=== PATIENT | male | born 1950 | race Caucasian/White ===

== ENCOUNTER 2017-01-06 15:13 | Emergency (ER) | payer SELFPAY ==
[2017-01-06 15:32] VITALS: BP 139/74; PULSE 87; TEMP 98; BMI 25.9
--- NOTE | 2017-01-06 18:07 | PDOC ---
History of Present Illness - General History Source: Patient Exam Limitations: No Limitations - History of Present Illness Initial Comments: CHIEF COMPLAINT: 66 y/o afebrile male with PMH HTN, HLD, gastritis and enlarged liver here for alcohol detox. HISTORY OF PRESENT ILLNESS: The patient admits he drinks 1 liter of wine and other hard alcohol daily for the past 35 years. The drinking is causing problems in his relationships so he would like to go to detox. He denies any previous attempts at detox. He denies all symptoms of withdrawal and states he feels good. Vital signs on arrival are within normal limits. REVIEW OF SYSTEMS: GENERAL/CONSTITUTIONAL: No fever/chills. No weakness. No weight change. HEAD, EYES, EARS, NOSE AND THROAT: No change in vision. No ear pain or discharge. No sore throat. CARDIOVASCULAR: No chest pain or shortness of breath. RESPIRATORY: No cough, wheezing, or hemoptysis. GASTROINTESTINAL: No abd pain, nausea, vomiting, diarrhea. GENITOURINARY: No dysuria, frequency, or change in urination. MUSCULOSKELETAL: No joint or muscle swelling or pain. No neck or back pain. SKIN: No rash or easy bruising. NEUROLOGIC: No headache, vertigo, loss of consciousness, or loss of sensation. PHYSICAL EXAM: GENERAL: The patient is awake, alert, and fully oriented, in no acute distress. He is very well appearing, ambulatory, in NAD or obvious discomfort. HEAD: Normal with no signs of trauma. ENT: Pupils equal, round and reactive to light, extraocular movements intact, sclera anicteric, conjunctiva clear. Neck supple. LUNGS: Clear to auscultation bilaterally. Normal excursion. No respiratory distress or use of accessory muscles. CV: RRR, S1/S2, no MRG. Cap refill < 2 sec. ABDOMEN: Soft, non-distended, non-tender even to deep palpation, no hepatomegaly or splenomegaly, no masses. EXTREMITIES: Normal range of motion, no edema. NEUROLOGICAL: Normal speech, normal gait. CN II-XII grossly intact. PSYCH: Normal mood, normal affect. SKIN: Warm, dry, normal turgor, no rashes or lesions noted. <Rosemary Hodge - Last Filed: 01/06/17 18:03> <Malcolm Sloan - Last Filed: 01/06/17 19:55> - General Chief Complaint: Alcohol intoxication Stated Complaint: INTOX Time Seen by Provider: 01/06/17 17:46 Past History - Past Medical History HTN: Yes Hypercholesterolemia: Yes - Psycho/Social/Smoking Cessation Hx Anxiety: No Suicidal Ideation: No Smoking History: Former smoker Have you smoked in the past 12 months: No Information on smoking cessation initiated: No Hx Alcohol Use: Yes (wine ( 1 liter), whiskey (small bottles)) Drug/Substance Use Hx: No Substance Use Type: Alcohol <Rosemary Hodge - Last Filed: 01/06/17 18:03> <Malcolm Sloan - Last Filed: 01/06/17 19:55> - Past Medical History Allergies/Adverse Reactions: Allergies Allergy/AdvReac Type Severity Reaction Status Date / Time No Known Allergies Allergy Verified 01/06/17 15:32 Home Medications: Ambulatory Orders NK [No Known Home Medication] 01/06/17 *Physical Exam - Vital Signs Last Vital Signs Temp Pulse Resp BP Pulse Ox 98.0 F 87 98 H 139/74 01/06/17 15:26 01/06/17 15:26 01/06/17 15:26 01/06/17 15:26 <Rosemary Hodge - Last Filed: 01/06/17 18:03> - Vital Signs Last Vital Signs Temp Pulse Resp BP Pulse Ox 98.0 F 87 98 H 139/74 01/06/17 15:26 01/06/17 15:26 01/06/17 15:26 01/06/17 15:26 <Malcolm Sloan - Last Filed: 01/06/17 19:55> Medical Decision Making - Medical Decision Making A/P: 66 y/o well appearing male here for detox from ETOH. He is originally from [place] and has been living here for a few years with his girlfriend. He denies all symptoms and states he feels well. Spoke with [facility] and they have no male beds. They suggested he return in the morning. The patient verbalizes understanding of all instructions, has no further questions and is awaiting discharge. <Rosemary Hodge - Last Filed: 01/06/17 18:03> - Medical Decision Making 01/06/17 19:55 The patient was seen and evaluated in conjunction with ALE Hodge under my direct supervision, ancillary studies were reviewed. I agree with the plan as outlined by ALE Hodge . <Malcolm Sloan - Last Filed: 01/06/17 19:55> *DC/Admit/Observation/Transfer <Rosemary Hodge - Last Filed: 01/06/17 18:03> <Malcolm Sloan - Last Filed: 01/06/17 19:55> Diagnosis at time of Disposition: ETOH abuse, EtOH dependence - Patient Instructions Printed Discharge Instructions: DI for Alcohol Abuse Additional Instructions: Discharge Instructions: -Return tomorrow morning in hopes there will be a male bed at the detox facility.
== END 2017-01-06 18:00 | disposition home or self-care (01) ==
LOC: JER 15:13
DX: F10.20 Alcohol dependence, uncomplicated (principal); I10 Essential (primary) hypertension; E78.00 Pure hypercholesterolemia, unspecified
CPT/HCPCS: 99281-25

== ENCOUNTER 2017-01-09 08:46 | Inpatient (IN) | payer SELFPAY ==
[2017-01-09 11:34] VITALS: BMI 24.1
--- NOTE | 2017-01-09 13:06 | HP ---
CIWA Score - CIWA Score Nausea/Vomitin-No Nausea/No Vomiting Muscle Tremors: 4-Moderate,w/Arms Extend Anxiety: 3 Agitation: 4-Moderately Restless Paroxysmal Sweats: 3 Orientation: 0-Oriented Tacttile Disturbances: 0-None Auditory Disturbances: 0-None Visual Disturbances: 0-None Headache: 0-None Present CIWA-Ar Total Score: 14 Admission ROS BHS - HPI Chief Complaint: I am here for rehab. Allergies/Adverse Reactions: Allergies Allergy/AdvReac Type Severity Reaction Status Date / Time No Known Allergies Allergy Verified 01/09/17 12:43 History of Present Illness: pt is a 66yr old male with a history of alcohol dependence seeking detox for treatment. Exam Limitations: No Limitations - Ebola screening Have you traveled outside of the country in the last 21 days: No Have you had contact with anyone from an Ebola affected area: No Have you been sick,other than usual withdrawal symptoms: No Do you have a fever: No - Review of Systems Constitutional: Diaphoresis, Night Sweats EENT: reports: Tearing Respiratory: reports: No Symptoms reported Cardiac: reports: No Symptoms Reported, Syncope GI: reports: No Symptoms Reported : reports: No Symptoms Reported Musculoskeletal: reports: Joint Pain Neuro: reports: Tingling, Tremors Endocrine: reports: Flushing, Intolerance to Cold, Intolerance to Heat Hematology: reports: No Symptoms Reported Psychiatric: reports: Judgement Intact, Mood/Affect Appropiate, Orientated x3, Agitated, Anxious Other Systems: Reviewed and Negative Patient History - Patient Medical History Hx Anemia: No Hx Asthma: No Hx Chronic Obstructive Pulmonary Disease (COPD): No Hx Cancer: No Hx Cardiac Disorders: No Hx Congestive Heart Failure: No Hx Hypertension: Yes (on meds but does not names.) Hx Hypercholesterolemia: Yes Hx Pacemaker: No Hx Seizures: No Hx Dementia: No Hx Diabetes: No Hx Gastrointestinal Disorders: No Hx Liver Disease: No Hx Genitourinary Disorders: No Hx Sexually Transmitted Disorders: No Hx Renal Disease (ESRD): No Hx Thyroid Disease: No Hx Human Immunodeficiency Virus (HIV): No Hx Hepatitis C: No Hx Depression: No Hx Suicide Attempt: No (denies) Hx Bipolar Disorder: No Hx Schizophrenia: No - Patient Surgical History Past Surgical History: Yes Other Surgical History: Tonsillectomy - PPD History Previous Implant?: Yes Documented Results: Negative w/o proof PPD to be Administered?: Yes - Reproductive History Patient is a Female of Child Bearing Age (11 -55 yrs old): No - Smoking Cessation Smoking history: Former smoker Have you smoked in the past 12 months: No Aproximately how many cigarettes per day: 20 If you are a former smoker, when did you quit?: 6 months ago Hx Chewing Tobacco Use: No Initiated information on smoking cessation: Yes 'Breaking Loose' booklet given: 01/09/17 - Substance & Tx. History Hx Alcohol Use: Yes Hx Substance Use: No Substance Use Type: Alcohol - Substances Abused Alcohol Route: Oral Frequency: Daily Amount used: 1 liter wine/ 1-2 shots whiskey Age of first use: 19 Date of Last Use: 01/09/17 Family Disease History - Family Disease History Family History: Denies Admission Physical Exam [facility] - Vital Signs Vital Signs: Vital Signs - 24 hr 01/09/17 11:32 Temperature 96.8 F L Pulse Rate 60 Respiratory 20 Rate Blood Pressure 185/94 - Physical General Appearance: Yes: Appropriately Dressed, Moderate Distress, Tremorous, Irritable, Sweating, Anxious HEENTM: Yes: Hearing grossly Normal, Nasal Congestion Respiratory: Yes: Lungs Clear, Normal Breath Sounds, No Respiratory Distress Breast: Yes: Within Normal Limits Cardiology: Yes: Regular Rhythm, Regular Rate, S1, S2 Abdominal: Yes: Normal Bowel Sounds, Non Tender, Soft Genitourinary: Yes: Within Normal Limits Back: Yes: Normal Inspection Musculoskeletal: Yes: full range of Motion Extremities: Yes: Normal Capillary Refill, Normal Inspection, Tremors Integumentary: Yes: Normal Color, Diaphoresis Lymphatic: Yes: Within Normal Limits - Diagnostic (1) Alcohol dependence with uncomplicated withdrawal Current Visit: Yes Status: Chronic (2) Hypertension Current Visit: Yes Status: Chronic Qualifiers: Hypertension type: essential hypertension Qualified Code(s): I10 - Essential (primary) hypertension (3) Hyperlipidemia Current Visit: Yes Status: Chronic Qualifiers: Hyperlipidemia type: pure hypercholesterolemia Qualified Code(s): E78.00 - Pure hypercholesterolemia, unspecified; E78.0 - Pure hypercholesterolemia Cleared for Admission S - Detox or Rehab [facility] Level of Care: Medically Managed Detox Regimen/Protocol: Librium S Breath Alcohol Content Breath Alcohol Content: 0.073 Urine Drug Screen - Results Drug Screen Negative: Yes
[2017-01-09] MEDS ORDERED: chlordiazePOXIDE HCL 25 MG CAPSULE PO PRN (13:14)
[2017-01-09] MEDS ORDERED: ACETAMINOPHEN 325 MG TABLET (FP) PO PRN (13:14)
[2017-01-09] MEDS ORDERED: guaiFENesin/D-METHORPHAN HB 10 ML UNIT-DOSE CUPS PO PRN (13:14)
[2017-01-09] MEDS ORDERED: hydrOXYzine PAMOATE 50 MG CAPSULE (FP) PO PRN (13:14)
[2017-01-09] MEDS ORDERED: IBUPROFEN 400 MG TABLET (FP) PO PRN (13:14)
[2017-01-09] MEDS ORDERED: MAGNESIUM CITRATE 300 ML BOTTLE PO PRN (13:14)
[2017-01-09] MEDS ORDERED: P-EPHED 60MG/TRIPROLIDI 2.5MG TABLET PO PRN (13:14)
[2017-01-09] MEDS ORDERED: LOPERAMIDE HCL 2 MG CAPSULE PO PRN (13:14)
[2017-01-09] MEDS ORDERED: MENTHOL/PHENOL 1 EACH UD MM PRN (13:14)
[2017-01-09] MEDS ORDERED: MAGNESIUM HYDROX 2400MG/30ML ORAL SUSPENSION 30 ML CUP PO PRN (13:14)
[2017-01-09] MEDS ORDERED: MAG HYDROX/AL HYDROX/SIMETH 30 ML UNIT-DOSE CUP PO PRN (13:14)
[2017-01-09] MEDS ORDERED: chlordiazePOXIDE HCL 25 MG CAPSULE PO ONE (14:00)
[2017-01-09] MEDS: amLODIPine BESYLATE 5 MG TABLET (FP) PO SCH (14:45)
[2017-01-09] MEDS: chlordiazePOXIDE HCL 25 MG CAPSULE PO SCH ×2 (17:37→22:12)
[2017-01-09 17:41] LABS: URINE APPEARANCE CLEAR; URINE BILIRUBIN NEGATIVE (NEGATIVE); URINE BLOOD NEGATIVE (NEGATIVE); URINE COLOR LTYELLOW; URINE GLUCOSE (UA) NEGATIVE (NEGATIVE); URINE KETONE NEGATIVE (NEGATIVE); URINE LEUK ESTERASE NEGATIVE (NEGATIVE); URINE NITRITE NEGATIVE (NEGATIVE); URINE PROTEIN NEGATIVE (NEGATIVE); URINE UROBILINOGEN NEGATIVE E.U./dl (0.2-1.0)
[2017-01-09] MEDS: THIAMINE HCL 100 MG TABLET (FP) PO SCH (22:12)
[2017-01-09] MEDS: diphenhydrAMINE HCL 50 MG CAPSULE PO PRN (22:12)
[2017-01-09] MEDS: LISINOPRIL 10 MG TABLET (FP) PO SCH (22:42)
[2017-01-10] MEDS: chlordiazePOXIDE HCL 25 MG CAPSULE PO SCH ×4 (05:17→22:16)
--- NOTE | 2017-01-10 09:34 | PN ---
S CIWA - CIWA Score Nausea/Vomitin Muscle Tremors: 2 Anxiety: 3 Agitation: 2 Paroxysmal Sweats: 3 Orientation: 0-Oriented Tacttile Disturbances: 1-Very Mild Itch/Numbness Auditory Disturbances: 0-None Visual Disturbances: 0-None Headache: 0-None Present CIWA-Ar Total Score: 13 BHS Progress Note (SOAP) Subjective: interrupted sleep, sweats , wants to know lab results Objective: 01/10/17 09:33 Vital Signs Temperature 97.9 F 01/10/17 06:29 Pulse Rate 65 01/10/17 06:29 Respiratory Rate 18 01/10/17 06:29 Blood Pressure 125/81 01/10/17 06:29 O2 Sat by Pulse Oximetry (%) Laboratory Tests 01/09/17 14:00 Urine Color Ltyellow Urine Appearance Clear Urine pH 6.0 Ur Specific [place] 1.015 Urine Protein Negative Urine Glucose (UA) Negative Urine Ketones Negative Urine Blood Negative Urine Nitrite Negative Urine Bilirubin Negative Urine Urobilinogen Negative Ur Leukocyte Esterase Negative pending labs pt aox3 in nad ambulating Assessment: 01/10/17 09:33 withdrawal sx;s Plan: cont. detox increase fluids f/up pending labs
[2017-01-10] MEDS ORDERED: LISINOPRIL 10 MG TABLET (FP) PO SCH (10:00)
[2017-01-10 10:08] LABS: MCH 34.7 pg (25.7-33.7); MCHC 34.2 g/dl (32.0-35.9); MEAN CELL VOLUME 101.4 fl (80-96); MEAN PLT VOLUME 8.2 fl (7.5-11.1); PLATELET COUNT 211 K/MM3 (134-434); RDW 12.6 % (11.9-15.9); WHITE BLOOD COUNT 5.7 K/mm3 (4.0-10.0)
[2017-01-10] MEDS: PRENATAL VITAMINS W/ FOLIC ACID TABLET (FP) PO SCH (10:29)
[2017-01-10] MEDS: amLODIPine BESYLATE 5 MG TABLET (FP) PO SCH (10:29)
[2017-01-10] MEDS: LISINOPRIL 10 MG TABLET (FP) PO SCH (10:29)
[2017-01-10 10:35] LABS: ALBUMIN 3.4 g/dl (3.4-5.0); ANION GAP 12 (8-16); CALCIUM 9.1 mg/dL (8.5-10.1); CO2 28 mmol/L (21-32); GLUCOSE,RANDOM 88 mg/dL (74-106)
[2017-01-10 10:43] LABS: ALK PHOS 96 U/L (45-117); BILIRUBIN,TOTAL 1.3 mg/dL (0.2-1.0); COCKROFT - GAULT 62.28; CREATININE 1.1 mg/dL (0.7-1.3); SGOT/AST 41 U/L (15-37); SGPT/ALT 45 U/L (12-78)
--- NOTE | 2017-01-10 11:46 | EKG ---
Test Reason : Blood Pressure : / mmHG Vent. Rate : 088 BPM Atrial Rate : 088 BPM P-R Int : 166 ms QRS Dur : 104 ms QT Int : 384 ms P-R-T Axes : 078 044 064 degrees QTc Int : 464 ms NORMAL SINUS RHYTHM NORMAL ECG NO PREVIOUS ECGS AVAILABLE Confirmed by MARY GOODMAN MD ([id number]) on 01/10/2017 11:45:33 AM Referred By: Confirmed By:MARY GOODMAN MD
[2017-01-10] MEDS: THIAMINE HCL 100 MG TABLET (FP) PO SCH (22:15)
[2017-01-10] MEDS: ATORVASTATIN CA 10 MG TABLET (FP) PO SCH (22:16)
[2017-01-11] MEDS: chlordiazePOXIDE HCL 25 MG CAPSULE PO SCH ×2 (06:19→10:28)
[2017-01-11] MEDS: amLODIPine BESYLATE 5 MG TABLET (FP) PO SCH (10:28)
[2017-01-11] MEDS: PRENATAL VITAMINS W/ FOLIC ACID TABLET (FP) PO SCH (10:29)
[2017-01-11] MEDS: LISINOPRIL 10 MG TABLET (FP) PO SCH (10:29)
[2017-01-11] MEDS ORDERED: TETRAHYDROZOLINE HCL 1 DROP DROPS OU PRN (10:33)
--- NOTE | 2017-01-11 15:09 | PN ---
S CIWA - CIWA Score Nausea/Vomitin-No Nausea/No Vomiting Muscle Tremors: 4-Moderate,w/Arms Extend Anxiety: 3 Agitation: 3 Paroxysmal Sweats: 2 Orientation: 0-Oriented Tacttile Disturbances: 0-None Auditory Disturbances: 0-None Visual Disturbances: 0-None Headache: 0-None Present CIWA-Ar Total Score: 12 BHS Progress Note (SOAP) Subjective: sweats shakes interrupted sleep body aches Objective: 01/11/17 15:09 Vital Signs Temperature 96.1 F L 01/11/17 14:05 Pulse Rate 72 01/11/17 14:05 Respiratory Rate 18 01/11/17 14:05 Blood Pressure 128/76 01/11/17 14:05 O2 Sat by Pulse Oximetry (%) Laboratory Tests 01/09/17 01/10/17 01/10/17 14:00 07:00 07:00 WBC 5.7 RBC 3.96 L Hgb 13.7 Hct 40.1 MCV 101.4 H MCHC 34.2 RDW 12.6 Plt Count 211 MPV 8.2 Sodium 141 Potassium 4.3 Chloride 101 Carbon Dioxide 28 Anion Gap 12 BUN 12 Creatinine 1.1 Creat Clearance w eGFR > 60 Random Glucose 88 Calcium 9.1 Total Bilirubin 1.3 H AST 41 H ALT 45 Alkaline Phosphatase 96 Total Protein 7.0 Albumin 3.4 Urine Color Ltyellow Urine Appearance Clear Urine pH 6.0 Ur Specific [place] 1.015 Urine Protein Negative Urine Glucose (UA) Negative Urine Ketones Negative Urine Blood Negative Urine Nitrite Negative Urine Bilirubin Negative Urine Urobilinogen Negative Ur Leukocyte Esterase Negative RPR Titer 01/10/17 07:00 WBC RBC Hgb Hct MCV MCHC RDW Plt Count MPV Sodium Potassium Chloride Carbon Dioxide Anion Gap BUN Creatinine Creat Clearance w eGFR Random Glucose Calcium Total Bilirubin AST ALT Alkaline Phosphatase Total Protein Albumin Urine Color Urine Appearance Urine pH Ur Specific [place] Urine Protein Urine Glucose (UA) Urine Ketones Urine Blood Urine Nitrite Urine Bilirubin Urine Urobilinogen Ur Leukocyte Esterase RPR Titer Nonreactive awake/alert ambulating no acute distress Assessment: 01/11/17 15:10 withdrawal sx Plan: continue detox increase fluids
[2017-01-11] MEDS: chlordiazePOXIDE 5 MG CAPSULE PO SCH ×2 (17:28→22:07)
[2017-01-11] MEDS: ATORVASTATIN CA 10 MG TABLET (FP) PO SCH (22:07)
[2017-01-11] MEDS: THIAMINE HCL 100 MG TABLET (FP) PO SCH (22:07)
[2017-01-11] MEDS: diphenhydrAMINE HCL 50 MG CAPSULE PO PRN (22:07)
[2017-01-12] MEDS: chlordiazePOXIDE 5 MG CAPSULE PO SCH ×2 (05:53→11:19)
[2017-01-12] MEDS: LISINOPRIL 10 MG TABLET (FP) PO SCH (11:18)
[2017-01-12] MEDS: PRENATAL VITAMINS W/ FOLIC ACID TABLET (FP) PO SCH (11:18)
[2017-01-12] MEDS: amLODIPine BESYLATE 5 MG TABLET (FP) PO SCH (11:19)
[2017-01-12] MEDS ORDERED: LIDOCAINE 5% TOPICAL PATCH TP ONE (12:11)
--- NOTE | 2017-01-12 12:15 | PN ---
BHS Progress Note (SOAP) Subjective: interrupted sleep, sweats, lbp Objective: 01/12/17 12:13 Vital Signs Temperature 97.5 F L 01/12/17 09:51 Pulse Rate 82 01/12/17 09:51 Respiratory Rate 16 01/12/17 09:51 Blood Pressure 139/92 01/12/17 09:51 O2 Sat by Pulse Oximetry (%) Laboratory Tests 01/09/17 01/10/17 01/10/17 14:00 07:00 07:00 WBC 5.7 RBC 3.96 L Hgb 13.7 Hct 40.1 MCV 101.4 H MCHC 34.2 RDW 12.6 Plt Count 211 MPV 8.2 Sodium 141 Potassium 4.3 Chloride 101 Carbon Dioxide 28 Anion Gap 12 BUN 12 Creatinine 1.1 Creat Clearance w eGFR > 60 Random Glucose 88 Calcium 9.1 Total Bilirubin 1.3 H AST 41 H ALT 45 Alkaline Phosphatase 96 Total Protein 7.0 Albumin 3.4 Urine Color Ltyellow Urine Appearance Clear Urine pH 6.0 Ur Specific [place] 1.015 Urine Protein Negative Urine Glucose (UA) Negative Urine Ketones Negative Urine Blood Negative Urine Nitrite Negative Urine Bilirubin Negative Urine Urobilinogen Negative Ur Leukocyte Esterase Negative RPR Titer 01/10/17 07:00 WBC RBC Hgb Hct MCV MCHC RDW Plt Count MPV Sodium Potassium Chloride Carbon Dioxide Anion Gap BUN Creatinine Creat Clearance w eGFR Random Glucose Calcium Total Bilirubin AST ALT Alkaline Phosphatase Total Protein Albumin Urine Color Urine Appearance Urine pH Ur Specific [place] Urine Protein Urine Glucose (UA) Urine Ketones Urine Blood Urine Nitrite Urine Bilirubin Urine Urobilinogen Ur Leukocyte Esterase RPR Titer Nonreactive pt aox3 in nad ambualting Assessment: 01/12/17 12:14 withdrawal sx;s lbp Plan: cont. detox increase fluids lidocaine patch /d d/c in am
[2017-01-12] MEDS: chlordiazePOXIDE HCL 10 MG CAPSULE PO SCH ×2 (17:37→22:23)
[2017-01-12] MEDS ORDERED: LIDOCAINE PATCH REMOVAL MC SCH ×2 (22:00)
[2017-01-12] MEDS: THIAMINE HCL 100 MG TABLET (FP) PO SCH (22:23)
[2017-01-12] MEDS: ATORVASTATIN CA 10 MG TABLET (FP) PO SCH (22:23)
[2017-01-12] MEDS: diphenhydrAMINE HCL 50 MG CAPSULE PO PRN (22:23)
[2017-01-13] MEDS: chlordiazePOXIDE HCL 10 MG CAPSULE PO SCH (05:37)
[2017-01-13 07:15] VITALS: BP 138/88; PULSE 77; TEMP 97.7
--- NOTE | 2017-01-13 08:24 | DS ---
[facility] Detox Discharge Summary Admission Date: 01/09/17 Discharge Date: 01/13/17 - History Present History: Alcohol Dependence - Physical Exam Results Vital Signs: Vital Signs Temperature 97.7 F 01/13/17 06:00 Pulse Rate 77 01/13/17 06:00 Respiratory Rate 18 01/13/17 06:00 Blood Pressure 138/88 01/13/17 06:00 O2 Sat by Pulse Oximetry (%) - Treatment Hospital Course: Detox Protocol Followed, Detoxed Safely, Responded well, Discharged Condition Good, Rehab Referral Accepted - Medication Discharge Medications: Ambulatory Orders Unobtainable [Unobtainable] 01/09/17 - Diagnosis (1) Alcohol dependence with uncomplicated withdrawal Current Visit: Yes Status: Chronic (2) Hypertension Current Visit: Yes Status: Chronic Qualifiers: Hypertension type: essential hypertension Qualified Code(s): I10 - Essential (primary) hypertension (3) Hyperlipidemia Current Visit: Yes Status: Chronic Qualifiers: Hyperlipidemia type: pure hypercholesterolemia Qualified Code(s): E78.00 - Pure hypercholesterolemia, unspecified; E78.0 - Pure hypercholesterolemia - AMA Did Patient Leave Against Medical Advice: No
[2017-01-13] MEDS ORDERED: LIDOCAINE 5% TOPICAL PATCH TP SCH (10:00)
== END 2017-01-13 09:15 | disposition home or self-care (01) | DRG 775 ==
LOC: YASAS 08:46 → Y6N 13:21
PROVIDERS: ADMIT Internal Medicine; ATTEND Internal Medicine
PROC: HZ2ZZZZ Detoxification Services for Substance Abuse Treatment (ICD-10-PCS; principal; 2017-01-13)
DX: F10.230 Alcohol dependence with withdrawal, uncomplicated (principal); I10 Essential (primary) hypertension; E78.00 Pure hypercholesterolemia, unspecified
CPT/HCPCS: 36415; 80053; 81003; 85027; 86593; 93005; 93010